=== PATIENT | female | born 1970 | race Caucasian/White ===

== ENCOUNTER 2020-12-26 14:41 | Emergency (ER) | payer BC, SELFPAY ==
[2020-12-26 14:48] VITALS: BP 114/72; PULSE 73; RESP 16; TEMP 36.6; O2SAT 99
--- NOTE | 2020-12-26 15:11 | ED.GENADULT ---
HPI - General Adult General Chief complaint: Back Pain/Injury Stated complaint: lower back pain/nausea/diarrhea/fatigue/chillls Time Seen by Provider: 12/26/20 15:16 Source: patient and RN notes reviewed Mode of arrival: ambulatory Limitations: no limitations History of Present Illness HPI narrative: 50-year-old female presents with concern for approximately 3-day history of bilateral low back ache, fatigue, nausea, diarrhea, poor appetite, chills. She has been vaccinated for Covid. She denies any known sick contacts. She denies injury to her back. Denies urinary frequency, urgency, dysuria, hematuria. Denies abnormal vaginal bleeding or discharge. She reports taking Advil today with some relief of her backache. She denies cough, shortness of breath, nasal congestion, rhinorrhea, sore throat. She denies any exacerbating factors to her back pain, reports its a constant dull ache, does not change in nature with movement range of motion. Patient is menopausal. MD complaint: Back pain Related Data Home Medications Medication Instructions Recorded Confirmed omeprazole 40 mg capsule,delayed 40 mg PO DAILY 01/11/19 09/26/20 release estradiol mg 12/26/20 meloxicam 12/26/20 Allergies Allergy/AdvReac Type Severity Reaction Status Date / Time adhesive Allergy Unknown BLISTERS Verified 09/26/20 16:17 terbinafine Allergy Unknown Unknown Verified 09/26/20 16:17 Review of Systems Review of Systems: CONSTITUTIONAL: Denies malaise, chills, sweats, or fever. EYES: Denies visual changes, redness, or discharge. ENT: Denies rhinorrhea, congestion, sinus pain, otalgia or sore throat. CARDIOVASCULAR: Denies chest pain, palpitations, or edema. RESPIRATORY: Denies cough or dyspnea. GASTROINTESTINAL: Denies abdominal pain, vomiting, bloody, or mucous stools. Ports nausea and diarrhea GENITOURINARY: Denies dysuria, frequency, urgency, or hematuria. SKIN: Denies rash or itching. MUSCULOSKELETAL: Reports bilateral low back ache. NEUROLOGIC: Denies numbness, weakness, or headache. PSYCHIATRIC: Denies anxiety or depression. All systems reviewed & are unremarkable except as noted in HPI and below PMFSH Past Medical History Medical History BMI 24.0-24.9, adult BMI 25.0-25.9,adult Family History Family History Father Diabetes mellitus Mother Pacemaker Depression Hypertension Presence of artificial hip joint Sibling Mental health impairment Other Family history of coronary artery disease Family history of elevated blood lipids Family history of malignant neoplasm Family history of premature coronary heart disease Social History Social History Smoking status: Never smoker Alcohol intake: current Comments At time of signature, agree with nursing past medical, surgical, social and family history. There is no relevant family history pertinent to the presenting complaint Exam Narrative: GENERAL: Well-appearing, well-nourished, and in no acute distress. HEAD: Normocephalic, atraumatic. EYES: PERRLA and EOMI. HEENT: Nares clear, turbinates edematous and erythematous, clear discharge. Mucous membranes moist. TM pearly warner with dull light reflex bilaterally; no tragal tenderness. Oropharynx erythematous without lesions. Tonsils enlarged and without exudate, no drooling, no hoarseness, no trismus, uvula midline. NECK: Supple. No lymphadenopathy. CHEST:Clear to auscultation, breath sounds equal. No wheezing, rhonchi, rales, or stridor. No respiratory distress, speaks in full sentences. HEART: Regular rate and rhythm. Distal pulses palpable and equal, cap refill <3 seconds ABDOMEN: Soft, nontender, nondistended, normal active bowel sounds, no palpable or pulsatile masses. No CVA tenderness MUSCULOSKELETAL: Normal range of motion and strength in all extremities;
== END 2020-12-26 15:42 | disposition home or self-care (01) ==
PROVIDERS: Emergency Provider Nurse Practitioner; PCP Family Medicine
DX: B34.9 Viral infection, unspecified (principal); Z20.822 Contact with and (suspected) exposure to COVID-19; F41.9 Anxiety disorder, unspecified; F90.9 Attention-deficit hyperactivity disorder, unspecified type
CPT/HCPCS: 81003; 87086; 87426; 99213; C9803; G0463

== ENCOUNTER 2023-11-14 08:05 | Outpatient (CLI) | payer BC, SELFPAY ==
--- NOTE | ~2023-11-14 | MM_ITS ---
EXAMINATION: MM screening [facility] BI w jossy HISTORY: Screening TECHNIQUE: Craniocaudal and mediolateral oblique 3-D tomosynthesis images were obtained and synthetic 2-D images were generated. CAD analysis was submitted and interpreted. COMPARISON: Comparison to multiple prior studies sequentially, with oldest reviewed study dated [place] to multiple prior studies sequentially, with oldest reviewed study dated 04/10/2016. . BREAST PARENCHYMAL COMPOSITION: Dense: The breasts are heterogeneously dense, which may obscure small masses FINDINGS: There is no evidence of suspicious mass, calcification, or architectural distortion to sugg est malignancy in either breast. There has been no suspicious interval change. IMPRESSION: 1. No mammographic evidence of malignancy. 2. Recommend routine screening mammography in one year. BI-RADS Category 1: Negative Reviewed, dictated and finalized at location B.
== END 2023-11-14 08:06 | disposition home or self-care (01) ==
LOC: ANHIMG 08:07
PROVIDERS: PCP Family Medicine; Visit Provider Obstetrics & Gynecology
DX: Z12.31 Encounter for screening mammogram for malignant neoplasm of breast (principal)
CPT/HCPCS: 77063; 77067

== ENCOUNTER 2024-03-11 08:18 | Outpatient (CLI) | payer BC, SELFPAY ==
--- NOTE | 2024-03-11 | ECG_ITS ---
Test Date: 2024-03-11 09:42:35 Measurements Intervals [place] Rate: 76 P: 59 VA: 155 QRS: 67 QRSD: 83 T: 45 QT: 370 QTc: 417 Interpretive Statements SINUS RHYTHM No previous ECG available for comparison Electronically Signed On 03-11-2024 14:21:34 SENIOR SAF[employer]Y MANAGEMENT CONSULTANT by Conchita Quick
--- NOTE | 2024-03-11 08:38 | EST_ITS ---
Patient Info Name: Cherry Linder Age: 54 years : 1970 Gender: Female Ht: 61 in Wt: 152 lbs BSA: 1.75 m2 HR: 67 bpm BP: 103 / 68 mmHg Exam Date: 03/11/2024 8:58 AM Patient Status: Outpatient Admit Date: 03/11/2024 Staff Ordering Physician: Florencia Pena APRN Attending Provider: Florencia Pena APRN Exercise Technologist: [facility] Exercise Physician: Rainer Bryan DO Exam Type: CA stress test treadmill Study Info A treadmill exercise stress test was performed. Summary 1. 1. Negative Tank exercise stress test for ischemic ST changes by ECG criteria. 2. 2. Good functional capacity, achieving 10 METs of workload. 3. 3. Appropriate HR response to exercise. 4. 4. Appropriate HR recovery at 1 minute post exercise. 5. 5. No imaging with stress testing. 6. 6. Patient informed of the above results. Protocol: Tank Stress ECG Details Stage: REST Duration (min): 0 min : 22 sec Speed (mph): 0.0 Grade (%): 0 HR (bpm): 66 SBP (mmHg): --- DBP (mmHg): --- METS: --- Stage: REST Duration (min): 0 min : 41 sec Speed (mph): 0.0 Grade (%): 0 HR (bpm): 73 SBP (mmHg): --- DBP (mmHg): --- METS: --- Stage: REST Duration (min): 1 min : 55 sec Speed (mph): 0.0 Grade (%): 0 HR (bpm): 67 SBP (mmHg): 103 DBP (mmHg): 68 METS: --- Stage: REST Duration (min): 12 min : 7 sec Speed (mph): 0.0 Grade (%): 0 HR (bpm): 68 SBP (mmHg): 103 DBP (mmHg): 68 METS: --- Stage: STAGE 1 Duration (min): 1 min : 0 sec Speed (mph): 1.7 Grade (%): 10 HR (bpm): 99 SBP (mmHg): 103 DBP (mmHg): 68 METS: --- Stage: STAGE 1 Duration (min): 2 min : 0 sec Speed (mph): 1.7 Grade (%): 10 HR (bpm): 99 SBP (mmHg): 103 DBP (mmHg): 68 METS: --- Stage: STAGE 1 Duration (min): 3 min : 0 sec Speed (mph): 1.7 Grade (%): 10 HR (bpm): 99 SBP (mmHg): 103 DBP (mmHg): 68 METS: --- Stage: STAGE 2 Duration (min): 1 min : 0 sec Speed (mph): 2.5 Grade (%): 12 HR (bpm): 111 SBP (mmHg): 103 DBP (mmHg): 68 METS: --- Stage: STAGE 2 Duration (min): 2 min : 0 sec Speed (mph): 2.5 Grade (%): 12 HR (bpm): 115 SBP (mmHg): 144 DBP (mmHg): 71 METS: --- Stage: STAGE 2 Duration (min): 3 min : 0 sec Speed (mph): 2.5 Grade (%): 12 HR (bpm): 129 SBP (mmHg): 144 DBP (mmHg): 71 METS: --- Stage: STAGE 3 Duration (min): 1 min : 0 sec Speed (mph): 3.4 Grade (%): 14 HR (bpm): 129 SBP (mmHg): 143 DBP (mmHg): 68 METS: --- Stage: STAGE 3 Duration (min): 2 min : 0 sec Speed (mph): 3.4 Grade (%): 14 HR (bpm): 135 SBP (mmHg): 143 DBP (mmHg): 68 METS: --- Stage: STAGE 3 Duration (min): 3 min : 0 sec Speed (mph): 3.4 Grade (%): 14 HR (bpm): 143 SBP (mmHg): 173 DBP (mmHg): 48 METS: --- Stage: STAGE 4 Duration (min): 0 min : 13 sec Speed (mph): 4.2 Grade (%): 16 HR (bpm): 144 SBP (mmHg): 173 DBP (mmHg): 48 METS: --- Stage: RECOVERY Duration (min): 0 min : 46 sec Speed (mph): 0.0 Grade (%): 0 HR (bpm): 127 SBP (mmHg): 173 DBP (mmHg): 48 METS: --- Stage: RECOVERY Duration (min): 1 min : 46 sec Speed (mph): 0.0 Grade (%): 0 HR (bpm): 107 SBP (mmHg): 173 DBP (mmHg): 48 METS: --- Stage: RECOVERY Duration (min): 2 min : 4 sec Speed (mph): 0.0 Grade (%): 0 HR (bpm): 105 SBP (mmHg): 173 DBP (mmHg): 48 METS: --- Rest HR: 68 bpm Peak HR: 150 bpm Rest Sys BP: 103 mmHg Peak Sys BP: 173 mmHg Max Pred HR: 168 bpm % Max Pred HR: 89 % Target HR: 143 bpm Max RPP: 25,950 bpm*mmHg Lee Score: -18 Termination Reason: Reached target heart rate or workload Cardiac Symptoms: Shortness of breath Max ST Seg Deviation: -5.40 mm Total Time: 9 min : 13 sec Rest Colon BP: 68 mmHg Peak Colon BP: 48 mmHg Angina Score: None Total METS: 10.6 Resting ECG Sinus rhythm. Stress ECG No ST changes. Arrhythmias None. Report Signatures
== END 2024-03-11 08:19 | disposition home or self-care (01) ==
LOC: ANHCARD 08:20
PROVIDERS: PCP Family Medicine; Visit Provider Nurse Practitioner Adult Health
DX: Z13.1 Encounter for screening for diabetes mellitus (principal); Z13.29 Encounter for screening for other suspected endocrine disorder; R53.82 Chronic fatigue, unspecified; Z00.00 Encounter for general adult medical examination without abnormal findings
CPT/HCPCS: 93005; 93017

== ENCOUNTER 2024-12-08 08:06 | Outpatient (CLI) | payer BC, SELFPAY ==
--- NOTE | ~2024-12-08 | MM_ITS ---
EXAMINATION: MM screening [facility] BI w jossy HISTORY: Screening TECHNIQUE: Craniocaudal and mediolateral oblique 3-D tomosynthesis images were obtained and synthetic 2-D images were generated. CAD analysis was submitted and interpreted. COMPARISON: Comparison to multiple prior studies sequentially, with oldest reviewed study dated 03/02/2012. BREAST PARENCHYMAL COMPOSITION: The breasts are heterogeneously dense, which may obscure small masses. FINDINGS: There is no evidence of suspicious mass, calcification, or architectural distortion to suggest malignancy in either breast. Scattered benign-appearing calcifications are present. IMPRESSION: 1. No mammographic evidence of malignancy. 2. Recommend routine screening mammography in one year. BI-RADS Category 2: Benign finding(s). Reviewed, dictated and finalized at location B.
== END 2024-12-08 08:07 | disposition home or self-care (01) ==
LOC: MICIMG 08:07
PROVIDERS: PCP Family Medicine; Visit Provider Obstetrics & Gynecology
DX: Z12.31 Encounter for screening mammogram for malignant neoplasm of breast (principal)
CPT/HCPCS: 77063; 77067